=== PATIENT | male | born 1960 | race Two or more races ===

== ENCOUNTER 2025-06-05 13:04 | Emergency (ER) | payer OTHER ==
[~2025-06-05] VITALS: Ht 175.3 cm; Wt 72.2 kg
--- NOTE | 2025-06-05 13:19 | ED.PDOC ---
HPI Comments HPI: Poor Historian. HPI: 65y M who presents to the ED via EMS for chief complaint of hypertension/chest pain - pt states he has been having weakness, dizziness, sweats, nausea and malaise over the past few days - pt states he woke up this AM and states he started to have substernal, chest pain - pt states the pain was non-radiating, pressure like in nature, with no associated exacerbating or relieving factors - pt states afterwards, he decided to check his blood pressure with home machine and states it read systolic BP in the 180's and pt decided to take his prescribed Lisinopril and states his chest pain went away but came to the ED for further evaluation - pt now in the ED, denies any active chest pain - pt has stable vitals in the ED: BP of 119/97, temp 97.6 F, RR 18, and heart rate 65 - Past Medical history: HTN, HLD, diabetes, depression, anxiety, insomnia Past Surgical history: gastric bypass, cholecystomy, vasectomy Medications: simvastatin, metformin, Prozac, lisinopril, jiardance Social History: Denies smoking, ETOH, and drug use. Allergies: NKDA REVIEW OF SYSTEMS: CONSTITUTIONAL: Denies acute: fever, diaphoresis, chills, HEAD: Denies acute: headache, photophobia Eyes: Denies acute: Double vision, vision loss, eye pain, eye discharge. EARS: Denies acute: tinnitus, hearing loss, ear discharge, ear pain, THROAT: Denies acute: sore throat, swelling, difficulty swallowing , pain with swallowing, change in voice. NECK: Denies acute: neck pain, neck swelling, stiff neck. HEART: Denies acute : , palpitations, LUNGS: Denies acute: SOB, wheezing, cough, hemoptysis ABDOMEN: Denies acute: abdominal pain, Vomiting, diarrhea, melena , hematemesis, hematochezia SKIN: Denies acute: rash, redness, lesions, itchiness. EXTREMITIES: Denies acute: calf pain, numbness, tingling, weakness, denies pain in extremity. Denies acute: Low back pain. Neuro: Denies acute: focal neurological deficit, motor or sensory focal neurological deficit, tremors, seizure like activity, confusion, change in mental status, loss of bowel or bladder function, cauda equina like symptoms. : Denies acute: dysuria, hematuria, flank pain, increase in urinary frequency. PSYCH: Denies acute: hallucination, suicidal ideation, homicidal ideation. PHYSICAL EXAM: General: ----no----acute distress, awake and alert. Head: normocephalic, atraumatic. Neck: supple, trachea is midline, no swelling. Throat: Normal phonation. Eyes:, no erythema, no purulent discharge, no proptosis, no icterus. Heart: regular rate, regular rhythm, no significant murmur appreciated. Lungs: no apparent respiratory distress, Able to speak in full sentences. No wheezing, no rhonchi, no crackles. No stridors Clear to auscultation bilaterally. Abdomen: non tender to palpation, non distended, soft, no guarding, no rebound, + bowel sounds. Neuro: Awake, Alert, oriented to name, self, situation, follows commands GCS=15. Speech is normal. Skin: no petechia, no purpura, no cyanosis, non-pale, not jaundice. Lower extremities: --no - Pitting edema no deformity, no focal swelling, no calf TTP. Makes eye contact. moves all four extremities. Face: no apparent facial droop. Ambulating in the ED independently. ED COURSE: DISCLAIMER: This medical document was created using an electronic medical record system with voice recognition software and computerized dictation system. Although this document has been carefully reviewed, there might still be some phonetic and typographical errors. Occasional wrong-word or "sound-alike" substitutions may have occurred due to the inherent limitations of voice recognition software. These areas are purely typographical due to imperfections of the software programs and do not reflect any compromise in the patient's medical care. Please read the chart carefully and recognize, using context, where these substitutions have occurred. Time Seen by MD: 13:07 Reviewed Notes: Medications, Allergies Allergies: Coded Allergies: Acetaminophen (Verified Allergy, Unknown, 06/05/25) Hydrocodone (Verified Allergy, Unknown, 06/05/25) Information Source: Patient Mode of Arrival: Ambulatory EKG EKG : Pulse Rate (adult): 63 [place]: Normal Cardiac Rhythm: NSR Block: None Hypertrophy: None ST: Normal Was a procedure done? Was a procedure done?: No X-Ray, Labs, Meds, VS Vital Signs Date Time Temp Pulse Resp B/P (MAP) Pulse Ox O2 Delivery O2 Flow Rate FiO2 06/05/25 18:18 74 16 98 Room Air* 0 21 06/05/25 16:54 98.1 64 18 134/70 (91) 98 98.1 06/05/25 16:31 61 06/05/25 14:33 70 18 100 Room Air 06/05/25 14:33 98.3 70 18 122/54 (76) 100 98.3 06/05/25 14:25 65 06/05/25 14:00 63 06/05/25 13:25 63 06/05/25 13:20 97.6 65 18 119/67 (84) 99 97.6 Lab Test 06/05/25 16:34 06/05/25 15:24 06/05/25 14:42 06/05/25 14:30 Range/Units Troponin I High Sensitivity < 3 L 3 L </=54 ng/L Lactic Acid Level 1.5 0.4-2.0 mmol/L Urine Color Light-yellow Yellow Urine Clarity Clear Clear Urine pH 5.5 5.0-9.0 Urine Specific [place] 1.022 1.001-1.035 Urine Protein 2+ H Negative Urine Ketones 1+ H Negative Urine Blood Trace H Negative /uL Urine Nitrite Negative Negative Urine Bilirubin Negative Negative Urine Urobilinogen Normal Negative mg/dL Urine Leukocyte Esterase Negative Negative /uL Urine RBC 1 0 - 3 /hpf Urine Microscopic WBC 1 0-3 /HPF Urine Squamous Epithelial Cells Few <5 /hpf Urine Bacteria None seen None Seen /hpf Urine Mucus Few None Seen Urine Glucose 4+ H Normal mg/dL Test 06/05/25 13:22 Range/Units White Blood Count 4.9 4.4-10.8 10^3/uL Red Blood Count 5.27 4.5-5.90 10^6/uL Hemoglobin 16.8 13.5-17.5 g/dL Hematocrit 48.9 41.0-53.0 % Mean Corpuscular Volume 92.8 80.0-100.0 fL Mean Corpuscular Hemoglobin 31.8 28.0-32.0 pg Mean Corpuscular Hemoglobin Concent 34.3 32.0-36.0 g/dL Red Cell Distribution Width 13.1 11.8-14.3 % Platelet Count 170 140-450 10^3/uL Mean Platelet Volume 9.1 6.9-10.8 fL Neutrophils (%) (Auto) 83.3 H 37.0-80.0 % Lymphocytes (%) (Auto) 11.0 10.0-50.0 % Monocytes (%) (Auto) 4.2 0.0-12.0 % Eosinophils (%) (Auto) 1.0 0.0-7.0 % Basophils (%) (Auto) 0.5 0.0-2.0 % Neutrophils # (Auto) 4.1 1.6-8.6 10 ^3/uL Lymphocytes # (Auto) 0.5 0.4-5.4 10 ^3/uL Monocytes # (Auto) 0.2 0-1.3 10 ^3/uL Eosinophils # (Auto) 0.1 0-0.8 10 ^3/uL Basophils # (Auto) 0 0-0.2 10 ^3/uL Nucleated Red Blood Cells 0.2 % Sodium Level 138 136-145 mmol/L Potassium Level 4.8 3.5-5.1 mmol/L Chloride Level 103 98-107 mmol/L Carbon Dioxide Level 26 20-31 mmol/L Anion Gap 9 5-15 Blood Urea Nitrogen 22 9-23 mg/dL Creatinine 0.97 0.700-1.30 mg/dL Glomerular Filtration Rate Calc 87 >90 mL/min BUN/Creatinine Ratio 22.7 H 10.0-20.0 Serum Glucose 169 H 74-106 mg/dL Lactic Acid Level 2.1 *H 0.4-2.0 mmol/L Calcium Level 10.2 8.7-10.4 mg/dL Total Bilirubin 1.0 0.2-1.0 mg/dL Aspartate Amino Transferase (AST) 42 H 13-40 U/L Alanine Aminotransferase (ALT) 71 H 7-40 U/L Alkaline Phosphatase 99 46-116 U/L Troponin I High Sensitivity < 3 L </=54 ng/L Total Protein 7.6 5.7-8.2 g/dL Albumin 5.2 H 3.2-4.8 g/dL Current Medications Medications (Trade) Dose Ordered Sig/Paulina Route Start Time Stop Time Status Last Admin Aspirin (Ecotrin Enteric Coated Tablet) 325 mg ONCE ONCE PO 06/05/25 13:30 06/05/25 13:31 DC 06/05/25 14:41 Sodium Chloride 1,000 ml @ 1,000 mls/hr Q1H ONCE IV 06/05/25 13:30 06/05/25 14:29 DC 06/05/25 14:41 [place] [id number] Ph: [phone] DIAGNOSTIC IMAGING Diagnostic Imaging Report : [id number] Signed PATIENT: CRISTINA LUKE ACCT: [id number] UNIT: [id number] : 1960 LOC: ER ROOM / BED: / AGE / SEX: 65 / M ADM STATUS: REG ER SERVICE [id number] ORDERING PHYSICIAN: SUKHI LUNA DO PROCEDURE(s): CXRP - CHEST PORTABLE REASON: cp ORDER NUMBER(s): [id number], ACCESSION NUMBER(s): [id number] EXAM: XY CHEST PORTABLE Indication: cp Technique: Single frontal view of the chest was obtained Comparison: None FINDINGS: Lines and Tubes: None Lungs: No focal consolidation. Pleura: No effusion. No pneumothorax. Cardiomediastinal contours: Unremarkable Bones: No acute osseous abnormality. IMPRESSION: No acute cardiopulmonary disease. ATED BY: RENETTA PEOPLES MD DICTATED DATE/TIME: 06/05/25 1353 SIGNED BY: RENETTA PEOPLES MD SIGNED DATE/TIME: 06/05/25 135 CC: Time of 1ST Reevaluation: 17:20 Reevaluation 1ST: Resolved Time of 2ND Reevaluation: 17:23 (The case was discussed with the [facility] admitting team to transfer the patient for further evaluation and treatment (HPI, physical exam, labs and diagnostic tests that were available at the time of disposition, ED course, treatment plan) on the phone. They agreed to arrange for close follow up for further evaluation and treatment. Dr. Farrar. Authorization number is--[id number]) Patient Education/Counseling: Diagnosis, Treatment Family Education/Counseling: No Family Present SEPSIS Sepsis Screen Physician Orders Loan Originator (06/05/25 ) Chest Portable (06/05/25 13:16) Electrocardigram (06/05/25 14:16) Electrocardigram (06/05/25 16:16) Saline Lock (06/05/25 14:19) Imaging Transfer Request (06/05/25 17:09) Vital Signs Date Time Temp Pulse Resp B/P (MAP) Pulse Ox O2 Delivery O2 Flow Rate FiO2 06/05/25 18:18 74 16 98 Room Air* 0 21 06/05/25 16:54 98.1 64 18 134/70 (91) 98 98.1 06/05/25 16:31 61 06/05/25 14:33 70 18 100 Room Air 06/05/25 14:33 98.3 70 18 122/54 (76) 100 98.3 06/05/25 14:25 65 06/05/25 14:00 63 06/05/25 13:25 63 06/05/25 13:20 97.6 65 18 119/67 (84) 99 97.6 Laboratory Tests Test 06/05/25 13:22 06/05/25 15:24 Lactic Acid Level 2.1 mmol/L (0.4-2.0) *H 1.5 mmol/L (0.4-2.0) White Blood Count 4.9 10^3/uL (4.4-10.8) Medications Medications Dose Ordered Sig/Paulina Route Start Time Stop Time Status Last Admin Dose Admin Aspirin 325 mg ONCE ONCE PO 06/05/25 13:30 06/05/25 13:31 DC 06/05/25 14:41 Sodium Chloride 1,000 ml @ 1,000 mls/hr Q1H ONCE IV 06/05/25 13:30 06/05/25 14:29 DC 06/05/25 14:41 Departure 1 Departure Time of Disposition: 16:57 Impression: Primary Impression: Chest pain Disposition: ADMITTED INPATIENT Admit to: Tele Condition: Guarded Additional Instructions: Additional instructions: You MUST follow-up with your primary care/family doctor in 1 to 2 days. If you are unable to see your primary care/family doctor, please return to our emergency room for re-assessment and re-evaluation in 1 to 2 days. Return to the emergency room here in our facility or to the nearest ER [facility] if your symptoms change or worsen. CONSULTATIONS: you MUST Follow-up for consultation as soon as possible with: --PCP and cardiology in 1-2 days. Please call for appointment. [facility] will contact you to arrange for follow up. You MUST call the consultants office yourself to make an appointment. You may need to arrange that through your insurance and/or your primary/family doctor. If you are unable to see the product development consultant in 1 to 2 days, you must return to our emergency room (or any other ER of your choice) for re-assessment and re- evaluation. Adequate fluid hydration. Monitoring blood pressure at home at least 3 times a day. Discharged With: Self Critical Care Note Critical Care Time?: No Heart Score Heart Score: Heart Score Response (Comments) Value History Slightly Suspicious 0 Age 45-64 1 Risk Factors >3 or Hx ASHD 2 Troponin Normal limit 0 Total 3 I personally scribed for SUKHI LUNA DO ([email or web address]) on 06/05/25 at 13:19. Electronically submitted by Hilda Centeno (Datto). I personally scribed for SUKHI LUNA DO ([email or web address]) on 06/05/25 at 13:56. Electronically submitted by Hilda Centeno (Datto). I personally scribed for SUKHI LUNA DO ([email or web address]) on 06/05/25 at 14:00. Electronically submitted by Hilda Centeno (Datto). I personally scribed for SUKHI LUNA DO ([email or web address]) on 06/05/25 at 14:07. Electronically submitted by Hilda Centeno (Datto). I personally scribed for SUKHI LUNA DO ([email or web address]) on 06/05/25 at 20:59. Electronically submitted by Hilda Centeno (Datto). SUKHI LUNA DO Jun 05, 2025 13:19
[2025-06-05 13:49] LABS: Hematocrit 48.9 % (41.0-53.0); Hemoglobin 16.8 g/dL (13.5-17.5); Mean Corpuscular Hemoglobin 31.8 pg (28.0-32.0); Mean Corpuscular Volume 92.8 fL (80.0-100.0); Nucleated Red Blood Cells % 0.2 %
[2025-06-05 13:51] LABS: Alkaline Phosphatase 99 U/L (46-116); Anion Gap 9 (5-15); BUN/Creatinine Ratio 22.7 (10.0-20.0); Blood Urea Nitrogen 22 mg/dL (9-23); Calcium 10.2 mg/dL (8.7-10.4); Carbon Dioxide 26 mmol/L (20-31); Chloride 103 mmol/L (98-107); Potassium 4.8 mmol/L (3.5-5.1); Sodium 138 mmol/L (136-145); Total Protein 7.6 g/dL (5.7-8.2)
[2025-06-05 13:52] LABS: Bilirubin, Total 1.0 mg/dL (0.2-1.0)
[2025-06-05 13:55] LABS: Alanine Aminotransferase 71 U/L (7-40); Albumin 5.2 g/dL (3.2-4.8); Glucose 169 mg/dL (74-106)
--- NOTE | 2025-06-05 13:55 | DVH ---
EXAM: XY CHEST PORTABLE Indication: cp Technique: Single frontal view of the chest was obtained Comparison: None FINDINGS: Lines and Tubes: None Lungs: No focal consolidation. Pleura: No effusion. No pneumothorax. Cardiomediastinal contours: Unremarkable Bones: No acute osseous abnormality. IMPRESSION: No acute cardiopulmonary disease.
[2025-06-05 13:56] LABS: Lactic Acid w/Reflex 2.1 mmol/L (0.4-2.0)
[2025-06-05] MEDS: SODIUM CHLORIDE 0.9% 1,000 ML IV ONE (14:41)
[2025-06-05] MEDS: ASPirin-EC 325mg tab PO ONE (14:41)
[2025-06-05 16:17] LABS: Urine Protein, UAD 2+ (Negative)
--- NOTE | 2025-06-05 16:32 | ECG ---
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
[2025-06-05 16:54] VITALS: BP 134/70; TEMP 98.1
[2025-06-05 18:18] VITALS: PULSE 74; RESP 16; O2SAT 98
--- NOTE | 2025-06-06 09:47 | ECG ---
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
--- NOTE | 2025-06-10 17:25 | ECG ---
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
== END 2025-06-05 18:28 | disposition home or self-care (01) ==
LOC: ER 13:04
DX: R07.89 Other chest pain (principal); E11.9 Type 2 diabetes mellitus without complications; E78.5 Hyperlipidemia, unspecified; F32.A Depression, unspecified; F41.9 Anxiety disorder, unspecified; I10 Essential (primary) hypertension; Z88.5 Allergy status to narcotic agent; Z88.6 Allergy status to analgesic agent; Z79.899 Other long term (current) drug therapy; Z90.49 Acquired absence of other specified parts of digestive tract; Z98.84 Bariatric surgery status
CPT/HCPCS: 36415; 71045; 80053; 81001; 83605; 84484; 85025; 93005; 96360; 99285; J7030

== ENCOUNTER 2025-06-19 08:31 | Emergency (ER) | payer OTHER ==
[~2025-06-19] VITALS: Ht 172.7 cm; Wt 73.0 kg
--- NOTE | 2025-06-19 08:41 | ED.PDOC ---
GI ASSESSMENT HPI Comments This is a 65 year old male DAVISA presenting to the ED with chief complaint of nausea/vomiting. EMS reports that the patient had started to experiencing nausea with associated vomiting at 4:30am this morning. EMS relays that the patient took his BP at home, noting a systolic BP in the 200s. EMS states that the patient also has been experiencing associated body aches, fever, chills, and chest tightness. EMS notes patient had similar symptoms a month ago, being seen in the ED at the time. Patient denies any diarrhea, SOB, dizziness, headache, or syncope. Chief Complaint: Nausea/Vomiting Time Seen by MD: 08:36 Primary Care Provider: JUAN Reviewed Notes: Nurses Notes, Operations Lieutenant Notes, Medications, Allergies Allergies: Coded Allergies: Acetaminophen (Verified Allergy, Unknown, 06/05/25) Hydrocodone (Verified Allergy, Unknown, 06/05/25) Information Source: Patient, Emergency Med Personnel Mode of Arrival: EMS Timing: Hours Duration: Since onset Prehospital treatment: None Quality: Aching Vomitus: Watery Stool: Normal Severity: Moderate Recent: None Pain Location: None Modifying Factors: Nothing Associated sign and symptoms: Nausea, Vomiting Past Medical History PAST MEDICAL HISTORY: DM, HTN Surgical History: Denies all surgeries Family History Family History: Reviewed,noncontributory to illness Social History Smoker: Non-Smoker Alcohol: Denies ETOH Use Drugs: Denies Drug Use Lives In: Home Constitutional: reports: chills, fever, others (Body aches); denies: diaphoresis, fatigue, malaise, sweats, weakness EENTM: denies: blurred vision, double vision, ear bleeding, ear discharge, ear drainage, ear pain, ear ringing, eye pain, eye redness, hearing loss, mouth pain, mouth swelling, nasal discharge, nose bleeding, nose congestion, nose pain, photophobia, tearing, throat pain, throat swelling, voice changes, others Respiratory: denies: cough, hemoptysis, orthopnea, SOB at rest, shortness of breath, SOB with excertion, stridor, wheezing, others Cardiovascular: reports: chest pain; denies: dizzy spells, diaphoresis, Dyspnea on exertion, edema, irregular heart beat, left arm pain, lightheadedness, palpitations, PND, syncope, others Gastrointestinal: reports: nausea, vomiting; denies: abdomen distended, abdominal pain, blood streaked bowels, constipated, diarrhea, dysphagia, difficulty swallowing, hematemesis, melena, poor appetite, poor fluid intake, rectal bleeding, rectal pain, others Genitourinary: denies: burning, dysuria, flank pain, frequency, hematuria, incontinence, penile discharge, penile sore, pain, testicle pain, testicle swelling, urgency, others Neurological: denies: dizziness, fainting, headache, left sided numbness, left sided weakness, numbness, paresthesia, pre-existing deficit, right sided numbness, right sided weakness, seizure, speech problems, tingling, tremors, weakness, others Musculoskeletal: denies: back pain, gout, joint pain, joint swelling, muscle pain, muscle stiffness, neck pain, others Integumetry: denies: bruises, change in color, change in hair/nails, dryness, laceration, lesions, lumps, rash, wounds, others Allergic/Immunocompromised: denies: Difficulty Healing, Frequent Infections, Hives, Itching, others Hematologic/Lymphatic: denies: anemia, blood clots, easy bleeding, easy bruising, swollen glands, others Endocrine: denies: excessive hunger, excessive sweating, excessive thirst, excessive urination, flushing, intolerance to cold, intolerance to heat, unexplained weight gain, unexplained weight loss, others Psychiatric: denies: anxiety, bipolar disorder, depression, hopeless, panic disorder, schizophrenia, sleepless, suicidal, others All Other Systems: Reviewed and Negative Physical Exam General Appearance: Moderate Distress, Normal HEENT: Normal ENT Inspection, Pharynx Normal, TMs Normal Neck: Full Range of Motion, Non-Tender, Normal, Normal Inspection Respiratory: Chest Non-Tender, Lungs Clear, No Accessory Muscle Use, No Respiratory Distress, Normal Breath Sounds Cardiovascular: No Edema, No JVD, No Murmur, No Gallop, Normal Peripheral Pulses, Regular Rate/Rhythm Breast Exam: Deferred Gastrointestinal: No Organomegaly, Non Tender, No Pulsatile Mass, Normal Bowel Sounds, Soft Genitalia: Deferred Pelvic: Deferred Rectal: Deferred Extremities: No calf tenderness, Normal capillary refill, Normal inspection, Normal range of motion, Non-tender, No pedal edema Musculoskeletal : Apperance: Normal Neurologic: Alert, toxicology supervisor II-XII nml as Tested, No Motor Deficits, Normal Affect, Normal Mood, No Sensory Deficits Cerebellar Function: Normal Reflexes: Normal Skin: Dry, Normal Color, Warm Peripheral Pulses: 3+ Radial (R), 3+ Radial (L) Lymphatic: No Adenopathy Was a procedure done? Was a procedure done?: No GI differential Dx Differential Diagnosis: Constipation, Diverticular disease, Esophagitis, Gastritis/PUD, Gastroenteritis, Dehydration, Electrolyte Imbalance, Food Poisoning, Bacterial, Viral X-Ray, Labs, Meds, VS Vital Signs Date Time Temp Pulse Resp B/P (MAP) Pulse Ox O2 Delivery O2 Flow Rate FiO2 06/19/25 10:05 60 17 159/90 06/19/25 10:01 60 17 159/90 (113) 100 06/19/25 10:00 159/90 06/19/25 09:20 65 19 96 Room Air* 0 21 06/19/25 09:16 65 19 180/70 06/19/25 08:57 97.8 65 19 180/70 (106) 96 97.8 181/83 (115) 06/19/25 08:57 65 19 96 Room Air 06/19/25 08:36 67 06/19/25 08:32 97.7 69 18 147/72 100 97.7 Lab Test 06/19/25 08:52 06/19/25 08:50 Range/Units Urine Color Pending Urine Clarity Pending Urine pH Pending Urine Specific Novice Pending Urine Protein Pending Urine Ketones Pending Urine Blood Pending Urine Nitrite Pending Urine Bilirubin Pending Urine Urobilinogen Pending Urine Leukocyte Esterase Pending Urine RBC Pending Urine Microscopic WBC Pending Urine Squamous Epithelial Cells Pending Urine Bacteria Pending Urine Glucose Pending White Blood Count 7.6 4.4-10.8 10^3/uL Red Blood Count 5.24 4.5-5.90 10^6/uL Hemoglobin 16.6 13.5-17.5 g/dL Hematocrit 48.4 41.0-53.0 % Mean Corpuscular Volume 92.5 80.0-100.0 fL Mean Corpuscular Hemoglobin 31.7 28.0-32.0 pg Mean Corpuscular Hemoglobin Concent 34.3 32.0-36.0 g/dL Red Cell Distribution Width 13.0 11.8-14.3 % Platelet Count 161 140-450 10^3/uL Mean Platelet Volume 9.1 6.9-10.8 fL Neutrophils (%) (Auto) 74.9 37.0-80.0 % Lymphocytes (%) (Auto) 16.7 10.0-50.0 % Monocytes (%) (Auto) 6.8 0.0-12.0 % Eosinophils (%) (Auto) 1.2 0.0-7.0 % Basophils (%) (Auto) 0.4 0.0-2.0 % Neutrophils # (Auto) 5.7 1.6-8.6 10 ^3/uL Lymphocytes # (Auto) 1.3 0.4-5.4 10 ^3/uL Monocytes # (Auto) 0.5 0-1.3 10 ^3/uL Eosinophils # (Auto) 0.1 0-0.8 10 ^3/uL Basophils # (Auto) 0 0-0.2 10 ^3/uL Nucleated Red Blood Cells 0.2 % Sodium Level 138 136-145 mmol/L Potassium Level 3.8 3.5-5.1 mmol/L Chloride Level 102 98-107 mmol/L Carbon Dioxide Level 22 20-31 mmol/L Anion Gap 14 5-15 Blood Urea Nitrogen 16 9-23 mg/dL Creatinine 1.10 0.700-1.30 mg/dL Glomerular Filtration Rate Calc 75 >90 mL/min BUN/Creatinine Ratio 14.5 10.0-20.0 Serum Glucose 159 H 74-106 mg/dL Calcium Level 10.2 8.7-10.4 mg/dL Current Medications Medications (Trade) Dose Ordered Sig/Paulina Route Start Time Stop Time Status Last Admin Sodium Chloride 1,000 ml @ 1,000 mls/hr Q1H ONCE IV 06/19/25 08:45 06/19/25 09:44 DC 06/19/25 10:03 Ondansetron HCl (Zofran) 4 mg ONCE ONCE IV 06/19/25 08:45 06/19/25 08:46 DC 06/19/25 09:15 Morphine Sulfate 4 mg ONCE ONCE IV 06/19/25 08:45 06/19/25 08:46 DC 06/19/25 09:16 Pantoprazole Sodium (Protonix) 40 mg ONCE ONCE IV 06/19/25 09:00 06/19/25 09:01 DC 06/19/25 09:15 Prochlorperazine Edisylate (Compazine Inj) 10 mg ONCE ONCE IV 06/19/25 10:00 06/19/25 10:01 DC 06/19/25 10:06 Patient alert. Complaining of nausea vomiting. Vitals stable. Answering questions. Possibly gastritis. Was given Protonix. Was given morphine. Was given Zofran. WBC within normal limits. Hemoglobin within normal limits. Physical examination pristine. CT scan of the abdomen was not warranted. Blood pressure elevated. Was given clonidine. Reviewed his previous visit. Explained to the patient. Was told to follow up with his primary care physician. Was told to come back if there is any problem. Time of 1ST Reevaluation: 09:36 Reevaluation 1ST: Improved Patient Education/Counseling: Diagnosis, Treatment Family Education/Counseling: No Family Present SEPSIS Sepsis Screen Date sepsis recognized/suspect: Jun 19, 2025 Time Sepsis recognized/suspect: 829 Recent Procedure: No On Antibiotic Therapy: No Respiratory Rate >20: No Heart Rate >90: No Temp<36 C (96.8 F) or >38.3 C: No SBP <90 or MAP <65 mmHG: No New Acute Mental Status Change: No Is the patient on CPAP, BIPAP,: No Physician Orders Urinalysis (06/19/25 08:34) Sodium Chloride 0.9% (06/19/25 08:45) Electrocardigram (06/19/25 09:08) Vital Signs Date Time Temp Pulse Resp B/P (MAP) Pulse Ox O2 Delivery O2 Flow Rate FiO2 06/19/25 10:05 60 17 159/90 06/19/25 10:01 60 17 159/90 (113) 100 06/19/25 10:00 159/90 06/19/25 09:20 65 19 96 Room Air* 0 21 06/19/25 09:16 65 19 180/70 06/19/25 08:57 97.8 65 19 180/70 (106) 96 97.8 181/83 (115) 06/19/25 08:57 65 19 96 Room Air 06/19/25 08:36 67 06/19/25 08:32 97.7 69 18 147/72 100 97.7 Laboratory Tests Test 06/19/25 08:50 White Blood Count 7.6 10^3/uL (4.4-10.8) Medications Medications Dose Ordered Sig/Paulina Route Start Time Stop Time Status Last Admin Dose Admin Morphine Sulfate 4 mg ONCE ONCE IV 06/19/25 08:45 06/19/25 08:46 DC 06/19/25 09:16 Ondansetron HCl 4 mg ONCE ONCE IV 06/19/25 08:45 06/19/25 08:46 DC 06/19/25 09:15 Pantoprazole Sodium 40 mg ONCE ONCE IV 06/19/25 09:00 06/19/25 09:01 DC 06/19/25 09:15 Prochlorperazine Edisylate 10 mg ONCE ONCE IV 06/19/25 10:00 06/19/25 10:01 DC 06/19/25 10:06 Sodium Chloride 1,000 ml @ 1,000 mls/hr Q1H ONCE IV 06/19/25 08:45 06/19/25 09:44 DC 06/19/25 10:03 Departure 1 Departure Time of Disposition: 09:20 Impression: Primary Impression: Hypertensive urgency Additional Impression: Gastroenteritis Disposition: 01 HOME / SELF CARE / HOMELESS Condition: Good Discharged With: Self Critical Care Note Critical Care Time?: No Stability Stability form required: No Heart Score Heart Score: Heart Score Response (Comments) Value History N/A 0 EKG N/A 0 Age N/A 0 Risk Factors N/A 0 Troponin N/A 0 Total 0 I personally scribed for JIHAN SALEEM MD ([email or web address]) on 06/19/25 at 08:41. Electronically submitted by Don Wang ([email or web address]). JIHAN SALEEM MD Jun 19, 2025 08:41
[2025-06-19] MEDS: ONDANSETRON HCL 4 MG/2 ML VIAL IV ONE ×2 (08:43→09:15)
[2025-06-19] MEDS: SODIUM CHLORIDE 0.9% 1,000 ML IV ONE ×2 (09:01→09:12)
[2025-06-19 09:10] LABS: Hematocrit 48.4 % (41.0-53.0); Hemoglobin 16.6 g/dL (13.5-17.5); Mean Corpuscular Hemoglobin 31.7 pg (28.0-32.0); Mean Corpuscular Volume 92.5 fL (80.0-100.0); Nucleated Red Blood Cells % 0.2 %
[2025-06-19 09:14] LABS: Chloride 102 mmol/L (98-107); Potassium 3.8 mmol/L (3.5-5.1); Sodium 138 mmol/L (136-145)
[2025-06-19 09:15] LABS: Anion Gap 14 (5-15); Calcium 10.2 mg/dL (8.7-10.4); Carbon Dioxide 22 mmol/L (20-31)
[2025-06-19] MEDS: PANTOPRAZOLE 40 MG/10 ML VIAL INJ IV ONE (09:15)
[2025-06-19] MEDS: MORPHINE SULFATE 4 MG/ML SYR/VIAL IV ONE (09:16)
[2025-06-19 09:20] VITALS: PULSE 65; RESP 19; O2SAT 96
[2025-06-19 09:20] LABS: BUN/Creatinine Ratio 14.5 (10.0-20.0); Blood Urea Nitrogen 16 mg/dL (9-23)
[2025-06-19 09:21] LABS: Glucose 159 mg/dL (74-106)
[2025-06-19] MEDS: PROCHLORPERAZINE EDISYLATE 5 MG/ML 2ML VIAL IV ONE (10:06)
[2025-06-19 11:11] LABS: Urine Protein, UAD 1+ (Negative)
[2025-06-19 11:56] VITALS: BP 163/78; PULSE 60; RESP 18; TEMP 97.5; O2SAT 98
[2025-06-19] MEDS: METOCLOPRAMIDE HCL 5MG/ml INJ 2ml VIAL IV ONE (12:16)
--- NOTE | 2025-06-19 18:59 | ECG ---
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
== END 2025-06-19 12:42 | disposition home or self-care (01) ==
LOC: ER 08:31 → EDBD 08:31 → ER 12:40
DX: I16.0 Hypertensive urgency (principal); K52.9 Noninfective gastroenteritis and colitis, unspecified; E11.9 Type 2 diabetes mellitus without complications; I10 Essential (primary) hypertension; Z88.5 Allergy status to narcotic agent; Z79.899 Other long term (current) drug therapy
CPT/HCPCS: 36415; 80048; 81001; 82947; 85025; 93005; 96361; 96374; 96375; 99284; J0780; J2270; J2405; J2470; J2765

== ENCOUNTER 2025-08-27 19:43 | Emergency (ER) | payer OTHER ==
[~2025-08-27] VITALS: Ht 175.3 cm; Wt 72.6 kg
[2025-08-27 19:56] VITALS: BP 125/68; PULSE 59; RESP 16; TEMP 98.1; O2SAT 97
--- NOTE | 2025-08-27 21:37 | DVH ---
CLINICAL INDICATION: laceration TECHNIQUE: 3 views XY L 3RD FINGER XRAY Comparison: None FINDINGS: Oblique, comminuted fracture along the radial aspect of the 3rd distal phalanx extending to the dista l interphalangeal joint. Numerous tiny fragments appear lesser in volume than the size of the defect . Associated soft tissue swelling with surrounding dressing material. No dislocation or other fracture. Peripheral atherosclerosis. IMPRESSION: 1. Open comminuted fracture of the left middle finger distal phalanx with bone loss.
--- NOTE | 2025-08-27 21:49 | ED.PDOC ---
History of Present Illness HPI Comments 65-year-old male presents to the ER with a chief complaint of laceration. Patient reports that he was using a table saw when he cut the 3rd phalanx on his left hand leaving a 7 cm laceration. Denies chills, fever, N/V/D, SOB, CP. No other associated symptoms, modifiers, recent injuries or sick contacts present at this time. Chief Complaint: Laceration Time Seen by MD: 21:47 Primary Care Provider: JUAN Reviewed Notes: Nurses Notes, Medications, Allergies Allergies: Coded Allergies: Acetaminophen (Verified Allergy, Unknown, 06/05/25) Hydrocodone (Verified Allergy, Unknown, 06/05/25) Information Source: Patient Mode of Arrival: Ambulatory Severity: Moderate Timing: Minutes Duration: Since onset, Minutes Prehospital treatment: None Past Medical History PAST MEDICAL HISTORY: DM, HTN Surgical History: Denies all surgeries Family History Family History: Reviewed,noncontributory to illness, Unknown Social History Smoker: Non-Smoker Alcohol: Denies ETOH Use Drugs: Denies Drug Use Lives In: Home Constitutional: denies: chills, diaphoresis, fatigue, fever, malaise, sweats, weakness, others EENTM: denies: blurred vision, double vision, ear bleeding, ear discharge, ear drainage, ear pain, ear ringing, eye pain, eye redness, hearing loss, mouth pain, mouth swelling, nasal discharge, nose bleeding, nose congestion, nose pain, photophobia, tearing, throat pain, throat swelling, voice changes, others Respiratory: denies: cough, hemoptysis, orthopnea, SOB at rest, shortness of breath, SOB with excertion, stridor, wheezing, others Cardiovascular: denies: chest pain, dizzy spells, diaphoresis, Dyspnea on exertion, edema, irregular heart beat, left arm pain, lightheadedness, palpitat ions, PND, syncope, others Gastrointestinal: denies: abdomen distended, abdominal pain, blood streaked bow els, constipated, diarrhea, dysphagia, difficulty swallowing, hematemesis, melena, nausea, poor appetite, poor fluid intake, rectal bleeding, rectal pain, vomiting, others Genitourinary: denies: burning, dysuria, flank pain, frequency, hematuria, incontinence, penile discharge, penile sore, pain, testicle pain, testicle swelling, urgency, others Neurological: denies: dizziness, fainting, headache, left sided numbness, left sided weakness, numbness, paresthesia, pre-existing deficit, right sided numbness, right sided weakness, seizure, speech problems, tingling, tremors, weakness, others Musculoskeletal: denies: back pain, gout, joint pain, joint swelling, muscle pain, muscle stiffness, neck pain, others Integumetry: reports: laceration (7 cm laceration to the 3rd phalanx of the left hand); denies: bruises, change in color, change in hair/nails, dryness, lesions, lumps, rash, wounds Allergic/Immunocompromised: denies: Difficulty Healing, Frequent Infections, Hives, Itching, others Hematologic/Lymphatic: denies: anemia, blood clots, easy bleeding, easy bruising, swollen glands, others Endocrine: denies: excessive hunger, excessive sweating, excessive thirst, excessive urination, flushing, intolerance to cold, intolerance to heat, unexplained weight gain, unexplained weight loss, others Psychiatric: denies: anxiety, bipolar disorder, depression, hopeless, panic disorder, schizophrenia, sleepless, suicidal, others All Other Systems: Reviewed and Negative Physical Exam Exam Comments 7 cm laceration to the 3rd phalanx of the left hand General Appearance: No Apparent Distress, Normal HEENT: Normal ENT Inspection, Pharynx Normal, TMs Normal Neck: Full Range of Motion, Non-Tender, Normal, Normal Inspection Respiratory: Chest Non-Tender, Lungs Clear, No Accessory Muscle Use, No Respiratory Distress, Normal Breath Sounds Cardiovascular: No Edema, No JVD, No Murmur, No Gallop, Normal Peripheral Pulses, Regular Rate/Rhythm Breast Exam: Deferred Gastrointestinal: No Organomegaly, Non Tender, No Pulsatile Mass, Normal Bowel Sounds, Soft Genitalia: Deferred Pelvic: Deferred Rectal: Deferred Extremities: No calf tenderness, Normal capillary refill, Normal inspection, Normal range of motion, Non-tender, No pedal edema Musculoskeletal : Apperance: Normal Neurologic: Alert, closer on II-XII nml as Tested, No Motor Deficits, Normal Affect, Normal Mood, No Sensory Deficits Cerebellar Function: Normal Reflexes: Normal Skin: Dry, Normal Color, Warm Lymphatic: No Adenopathy Was a procedure done? Was a procedure done?: Yes Sedation Sedation?: No Laceration Repair : Location Left 3rd middle finger Length 7cm Anesthetic: Lidocaine Laceration Repair Prep: Saline, Betadine Laceration Repair Wound Comple: epidermis/dermis repair Laceration Repair: Number of sutures (11), Size (4-0), Nylon, Non-adherent gauze, Gauze Informed consent obtained: Yes Risks, benefits, and alternati: Yes Differential Dx Considerations may include: Bone fracture, suture, tendon involvement X-Ray, Labs, Meds, VS Vital Signs Date Time Temp Pulse Resp B/P (MAP) Pulse Ox O2 Delivery O2 Flow Rate FiO2 08/27/25 19:56 98.1 59 16 125/68 97 98.1 Current Medications Medications (Trade) Dose Ordered Sig/Paulina Route Start Time Stop Time Status Last Admin Cefazolin Sodium 50 ml @ 100 mls/hr ONCE ONCE IV 08/27/25 22:00 08/27/25 22:29 DC 08/27/25 22:45 X-Ray, Labs, Meds, VS Comment X-ray shows nondisplaced fracture of the distal tip of the left 3rd digit. Due to the open fracture, wound was washed with copious amounts of normal saline and Betadine. Patient tolerated well. Digital block was applied to the left 3rd middle finger. Time of 1ST Reevaluation: 22:17 Reevaluation 1ST: Unchanged Patient Education/Counseling: Diagnosis, Treatment, Prognosis, Need For Follow Up (Follow up in two days for wound recheck, follow up in 7-10 days for suture removal) Family Education/Counseling: No Family Present SEPSIS Sepsis Screen Date sepsis recognized/suspect: Aug 27, 2025 Time Sepsis recognized/suspect: 2002 Recent Procedure: No On Antibiotic Therapy: No Respiratory Rate >20: No Heart Rate >90: No Temp<36 C (96.8 F) or >38.3 C: No SBP <90 or MAP <65 mmHG: No New Acute Mental Status Change: No Is the patient on CPAP, BIPAP,: No Physician Orders L 3rd Finger Xray (08/27/25 21:13) Vital Signs Date Time Temp Pulse Resp B/P (MAP) Pulse Ox O2 Delivery O2 Flow Rate FiO2 08/27/25 19:56 98.1 59 16 125/68 97 98.1 Medications Medications Dose Ordered Sig/Paulina Route Start Time Stop Time Status Last Admin Dose Admin Cefazolin Sodium 50 ml @ 100 mls/hr ONCE ONCE IV 08/27/25 22:00 08/27/25 22:29 DC 08/27/25 22:45 Departure 1 Departure Time of Disposition: 22:56 Impression: Primary Impression: Finger laceration with complication Qualified Codes: S61.219A - Laceration without foreign body of unspecified finger without damage to nail, initial encounter Additional Impression: Open fracture of finger of left hand Qualified Codes: S62.603B - Fracture of unspecified phalanx of left middle finger, initial encounter for open fracture Disposition: HOME / SELF CARE / HOMELESS Condition: Fair e-Prescriptions Amoxicillin & Pot Clavulanate (AUGMENTIN TABLET) 875 Mg Tb 875 MG PO BID for 10 Days, #20 TAB Prov: ARACELI MCFARLANE 08/27/25 Discharged With: Self Critical Care Note Critical Care Time?: No Stability Stability form required: No Heart Score Heart Score: Heart Score Response (Comments) Value History N/A 0 EKG N/A 0 Age N/A 0 Risk Factors N/A 0 Troponin N/A 0 Total 0 I personally scribed for ARACELI MCFARLANE ([email or web address]) on 08/27/25 at 21:49. Electronically submitted by Rajan Hammonds ([email or web address]). ARACELI MCFARLANE Aug 27, 2025 21:49
[2025-08-27] MEDS: LIDOCAINE 1% HCL (LOCAL ANESTH.) INJ 20ML MDV ID ONE (22:05)
[2025-08-27] MEDS: LIDOCAINE 1% HCL (LOCAL ANESTH.) INJ 20ML MDV IJ ONE (22:06)
[2025-08-27] MEDS: ceFAZolin 1GM/50ML 50 ML IV ONE (22:45)
[2025-08-27] MEDS ORDERED: AUG875T PO (22:58)
== END 2025-08-27 23:22 | disposition home or self-care (01) ==
LOC: ER 19:43
DX: S62.633B Displaced fracture of distal phalanx of left middle finger, initial encounter for open fracture (principal); E11.9 Type 2 diabetes mellitus without complications; I10 Essential (primary) hypertension; Z88.5 Allergy status to narcotic agent; W31.2XXA Contact with powered woodworking and forming machines, initial encounter; Y93.89 Activity, other specified; Y92.89 Other specified places as the place of occurrence of the external cause; Y99.8 Other external cause status
CPT/HCPCS: 12002; 73140; 96365; 99284; J0690; J2003